=== PATIENT | male | born 1970 | race Caucasian/White ===

== ENCOUNTER 2018-03-16 17:49 | Emergency (ER) | payer OTHER ==
[2018-03-16] MEDS ORDERED: Proparacaine 0.5% Ophth Soln 15 ML Bottle EYERT STA (18:08)
--- NOTE | 2018-03-16 18:48 | EDM.PDOC ---
ED HPI GENERAL MEDICAL PROBLEM - General Chief Complaint: Eye Problems Stated Complaint: RIGHT EYE, PIECE OF METAL Time Seen by Provider: 03/16/18 18:25 Source of Information: Reports: Patient, RN Notes Reviewed History Limitations: Reports: No Limitations - History of Present Illness INITIAL COMMENTS - FREE TEXT/NARRATIVE: 47-year-old gentleman presents to the emergency department day complaint of foreign object in his right eye, this happened earlier today when he was grinding metal he was wearing contacts and safety glasses and unfortunately the metal still found its way into his right eye. No troubles with vision - Related Data Allergies Allergy/AdvReac Type Severity Reaction Status Date / Time erythromycin base Allergy Vomiting Verified 03/16/18 18:08 [From Erythrocin] meperidine [From Demerol] Allergy Vomiting Verified 03/16/18 18:08 Home Meds: Home Meds NK [No Known Home Meds] 03/16/18 [History] Past Medical History - Past Health History Medical/Surgical History: Denies Medical/Surgical History Social & Family History - Tobacco Use Smoking Status *Q: Never Smoker ED ROS GENERAL - Review of Systems Review Of Systems: See Below Constitutional: Reports: No Symptoms HEENT: Reports: Eye Pain ED EXAM GENERAL W FULL EYE - Physical Exam Exam: See Below Exam Limited By: No Limitations General Appearance: Alert, WD/WN, No Apparent Distress Eye Exam: Right Eye: Foreign Body, Left Eye: Normal Inspection, Bilateral Eye: EOMI Eyelids: Bilateral: Normal Appearance Conjunctiva & Sclera: Right: Foreign Body, Left: Normal Appearance Cornea Exam: Right: Corneal Abrasion Extraocular Movements: Bilateral: Intact Pupils: Normal Accommodation Pupillary Size: Bilateral: 4 mm Pupillary Reaction: Bilateral: Brisk Respiratory/Chest: No Respiratory Distress Course - Vital Signs Last Recorded V/S: Last Vital Signs Temp 97.1 F 03/16/18 18:14 Pulse 65 03/16/18 18:14 Resp 16 03/16/18 18:14 BP 123/76 03/16/18 18:14 Pulse Ox 100 03/16/18 18:14 - Orders/Labs/Meds Meds: Medications Discontinued Medications Generic Name Dose Route Start Last Admin Trade Name Freq PRN Reason Stop Dose Admin Proparacaine HCl 1 ml 03/16/18 18:08 03/16/18 18:17 Proparacaine 0.5% Ophth Soln EYERT 03/16/18 18:09 1 ml NOW STA Administration Departure - Departure Time of Disposition: 18:47 Disposition: Home, Self-Care 01 Condition: Good Clinical Impression: Foreign body in eyeball, right Qualifiers: Encounter type: initial encounter Qualified Code(s): S05.51XA - Penetrating wound with foreign body of right eyeball, initial encounter - Discharge Information Referrals: PCP,None [Primary Care Provider] - Additional Instructions: Continue to use the gentamicin ophthalmic drops 4 times a day until reevaluated by eye care provider, call return to the emergency department with worsening of symptoms - Assessment/Plan Plan: Assessment Acuity = acute Site and laterality = foreign body right eye status post removal Etiology = secondary to trauma Manifestations = none Location of injury = Home Lab values = none Plan Placed on gentamicin ophthalmic drops 4 times a day until reevaluated by eye care provider, tenderness was done 2 years ago, have him follow-up with his eye care provider in the next 3-5 days for reevaluation This note was dictated using [facility] voice recognition software please call with any questions on syntax or sanaz.
== END 2018-03-16 19:07 | disposition home or self-care (01) ==
LOC: JP.ED 17:49
DX: S05.51XA Penetrating wound with foreign body of right eyeball, initial encounter (principal); Z88.1 Allergy status to other antibiotic agents; W45.8XXA Other foreign body or object entering through skin, initial encounter
CPT/HCPCS: 99283; A9270